=== PATIENT | female | born 1940 | race Caucasian/White ===

== ENCOUNTER 2023-07-18 02:29 | Inpatient (IN) | payer OTHER, SELFPAY ==
[2023-07-17 21:22] VITALS: BP 225/109
[2023-07-17 21:34] LABS: % Basophils 0.2 % (0-2); % Eosinophils 0.1 % (0-6); % Immature Granulocytes 0.7 % (0-0.5); % Lymphocytes 14.2 % (20.5-51.1); % Monocytes 7.1 % (1.7-9.3); % Neutrophils 77.7 % (42.2-75.2); Absolute Immature Granulocytes 0.1 10^3/uL (0-0.05); Absolute Lymphocytes 1.2 10^3/uL (1.2-3.4); Absolute Monocytes 0.6 10^3/uL (0.1-0.6); Absolute Neutrophils 6.5 10^3/uL (1.4-6.5); Hemoglobin 15.6 g/dL (12.0-16.0); Mean Corp Hgb Conc. 33.2 g/dL (33.0-37.0); Mean Corpuscular Hgb 30.5 pg (27.0-31.0); Mean Corpuscular Volume 91.8 fL (81.0-99.0); Mean Platelet Volume 10.3 fL (7.4-10.4); Nucleated Red Blood Cells % 0 %; Platelet Count 172 10^3/uL (130-400); Red Blood Cell Count 5.12 10^6/uL (4.20-5.40); Red Cell Dist. Width 14.4 % (11.5-14.5); White Blood Cell Count 8.3 10^3/uL (4.8-10.8)
[2023-07-17 21:43] VITALS: BP 214/96
[2023-07-17 21:48] LABS: ALT (SGPT) 27 U/L (0-35); AST (SGOT) 35 U/L (14-36); Albumin 4.3 g/dl (3.5-5.0); Alkaline Phosphatase 96 U/L (38-126); Blood Urea Nitrogen 29 mg/dl (7-17); Calcium 10.3 mg/dl (8.4-10.2); Carbon Dioxide 35 mmol/L (22-30); Chloride 97 mmol/L (98-107); Glucose 106 mg/dl (70-99); Potassium 4.3 mmol/L (3.5-5.1); Sodium 136 mmol/L (135-145); Total Bilirubin 0.4 mg/dl (0.2-1.3); Total Protein 6.2 g/dl (6.3-8.2); eGFR 40.55
[2023-07-17 21:49] LABS: COVID-19 Antigen Negative (Negative)
[2023-07-17 22:00] VITALS: BP 161/124
[2023-07-17 22:30] VITALS: BP 192/74
--- NOTE | 2023-07-17 22:52 | ED.GENMED ---
History of Present Illness
General
Chief Complaint: Cough
Source: patient
Exam Limitations: none
Time Seen by Provider: 07/17/23 22:50
Travel History
Have you had any contact with someone who has COVID-19?: No
Do you have any symptoms of coronavirus? Fever > 100 degrees, chills, cough, shortness of breath, sore throat, loss of taste or smell, muscle aches, or headache?: No
History of Present Illness
History of Present Illness:
83-year-old female presents with about 10 days worth of cough fatigue shortness of breath. She also started with a fever recently as well. No known sick contacts. She lives by herself but currently accompanied by her son. She has a history of
bronchitis. Never been diagnosed with COPD or heart failure. Denies any vomiting. No other complaints at this time
Past History
Past History
ED Past Medical History: CAD, Hypothyroidism, Other (?autoimmune thyroid disorder (dxd by her chiropractor), celiac, benign brain tumor, chronic lightheadedness/off balance ) and Other (benign brain tumor, CVA, hypoglycemia, gluten allergy, her
quarters and )
ED Past Surgical History: Other (Cataract )
Social History
Tobacco: Non-smoker
Alcohol: None
Drug: None
Personal: Single
Living: alone
Employment: Not employed
Family History
Family History: Other (Stroke and cancer )
Phy Exam
Physical Exam
Physical Exam:
General: Well-appearing female coughing throughout the exam
HEENT: Normocephalic atraumatic neck is supple
Heart: Tachycardic but regular
Lungs: Coarse bilaterally extremities: No cyanosis or edema
Skin: Warm no rashes
Course
Orders/Labs/Results
Orders:
Orders
07/17/23 21:29
COVID-19 Antigen Urgent
Source: Nasal Swab
Complete Blood Count/With Diff Urgent
Comprehensive Metabolic Panel Urgent
Influenza A+B Rapid Molecular Urgent
DANIEL Source: Nasal Swab
Specimen Description:
07/17/23 22:51
CR Chest - 2 Views Urgent
Comment:
Reason For Exam: cough, fever
07/17/23 23:02
Acetaminophen [Tylenol] 650 mg PO NOW STA
Ipratropium/Albuterol Sulfate [Duoneb] 3 ml INH R NOW STA
07/17/23 23:15
Lactic Acid Q4H
Comment: CANCEL 2nd LACTIC ACID IF 1st LACTIC ACID IS LESS THAN 2
Blood Culture Q30M
DANIEL Source: Blood/Venous
Specimen Description:
07/17/23 23:45
Blood Culture Q30M
DANIEL Source: Blood/Venous
Specimen Description:
07/17/23 23:49
Azithromycin 500 mg IVPB NOW Azithromycin 500 mg/250 ml [Zithromax Infusion] 500 mg in 250 ml IV NOW
CefTRIAXone [Rocephin] 1,000 mg IV NOW STA
07/18/23 03:15
Lactic Acid Q4H
Comment: CANCEL 2nd LACTIC ACID IF 1st LACTIC ACID IS LESS THAN 2
Abnormal Lab Results
07/17/23
21:29
Abs Immat Gran (auto) 0.1 H 10^3/uL
(0-0.05)
Immature Gran % 0.7 H %
(0-0.5)
Neutrophils % 77.7 H %
(42.2-75.2)
Lymphocytes % 14.2 L %
(20.5-51.1)
Chloride 97 L mmol/L
(98-107)
Carbon Dioxide 35 H mmol/L
(22-30)
BUN 29 H mg/dl
(7-17)
Creatinine 1.3 H mg/dL
(0.6-1.0)
Glucose 106 H mg/dl
(70-99)
Calcium 10.3 H mg/dl
(8.4-10.2)
Total Protein 6.2 L g/dl
(6.3-8.2)
07/17/23 21:29
07/17/23 21:29
Vital Signs
Initial and Last Documented VS:
Initial Vital Signs
Temp Pulse Resp Pulse Ox
103.1 F H 100 30 95
07/17/23 21:18 07/17/23 21:18 07/17/23 21:18 07/17/23 21:18
Last Documented Vital Signs
Temp Pulse Resp BP Pulse Ox
103 F H 98 25 203/80 92
07/17/23 23:30 07/17/23 23:30 07/17/23 23:30 07/17/23 23:25 07/17/23 23:25
MDM/Problems Addressed
Differential Diagnosis Includes:
Fever with cough. Consider viral illness such as COVID or flu versus bronchitis or pneumonia.
Patient not hypoxic but is tachycardic at rest. Will check labs. COVID and flu test were negative. Chest x-ray pending. Tylenol ordered for the fever. Will try DuoNeb as well.
*Critical Care Note
Total Time (30-74mins, 75-104mins- exclusive of procedures): Not Applicable
Update Note
Update Note:
Chest x-ray clear. Still tachycardic. Fever cough or shortness of breath. Consider subclinical pneumonia versus viral mediated bronchitis. Given her age and persistent fever will keep in hospital. Rocephin and Zithromax ordered for coverage.
Blood cultures pending
ED Attending Note
-
Portions of this chart may have been created with voice recognition software.� Occasional wrong word or��sound alike� substitutions may have occurred due to the inherent limitations of voice recognition software.
Discharge Plan
Departure
Patient Disposition: Admit
Date of Disposition: 07/17/23
Time of Disposition: 23:54
Admit to: Telemetry
Presentation/result/management discussed w/ accepting MD/DO: Hospitalist
Discharge Problem:
Acute bronchitis, Fever
Prescriptions:
No Action
prednisone 10 mg Tablet
10 mg PO DAILY
ibuprofen [Advil] 200 mg Tablet
200 mg PO Q6H PRN (Reason: pain)
furosemide [Lasix] 20 mg Tablet
20 mg PO DAILY
valsartan 40 mg Tablet
40 mg PO DAILY
multivit,mins no.21-folic acid 1 mg Tablet,Delayed Release (Dr/Ec)
1 tab PO
vitamin A 10,000 unit Capsule
10,000 unit PO DAILY
ascorbic acid (vitamin C) [Vitamin C] 500 mg Tablet
500 mg PO DAILY
Vitamin D2 1,000 unit Capsule
1,000 unit PO DAILY
Referrals:
Chetan Negrete MD [Family Provider] -
Interventions
Interventions:
*Risk Screen - Suicide Last Done: 07/17/23 21:47
*General Assessment Last Done: 07/17/23 21:21
*Neglect/Abuse Screening Last Done: 07/17/23 21:47
ED- Fall Risk Assessment Last Done: 07/17/23 21:47
*ED COVID-19 Vaccine History Last Done: 07/17/23 21:21
ED- Pulmonary Assessment Last Done: 07/17/23 23:15
Discharge Date and Time
Print Language: MOLDOVAN
[2023-07-17 23:25] VITALS: BP 203/80
[2023-07-17] MEDS: TYLENOL 650 MG PO (23:27)
[2023-07-17] MEDS: DUONEB 3 ML INH (23:27)
[2023-07-18] VITALS (28 sets, daily range): BP systolic 109–168; BP diastolic 43–103; PULSE 84–87; O2SAT 88–92; BMI 23.8
[2023-07-18] MEDS: ROCEPHIN 1000 MG IV (00:28)
[2023-07-18] MEDS: ZITHROMAX INFUSION 250 IV (00:38)
[2023-07-18] MEDS: PHENERGAN WITH CODEINE SYRUP 5 ML PO ×2 (00:45→05:38)
[2023-07-18 00:47] LABS: Lactic Acid 1.1 mmol/L (0.7-2.0)
--- NOTE | 2023-07-18 01:30 | HPS.HSE ---
Family Physician
-
Family Physician: Chetan Negrete
Chief Complaint
-
Cough, fatigue
History of Present Illness
Patient is an 83y F with PMH significant for polymyalgia, microscopic colitis and hypertension who presents to ED complaining of cough and fatigue x 2-3 weeks. Patient reports cough productive of white / yellow mucus initially - since becoming
less productive. She denies any fevers / chills. She has some mild dyspnea - mostly with coughing or exertion. No known sick contacts. She has been taking DayQuil / NyQuil without adequate relief of her symptoms and presented to the ED this
evening for further evaluation.
Medical History
Past Medical History
Past Medical History: Reports Other
Additional Past Medical History:
Hypertension
Polymyalgia Rheumatica
Microscopic Colitis
Meningioma
Past Surgical History: Reports Other
Additional Past Surgical History:
Meningioma Resection
Tubal Ligation
Social History
Tobacco: Non-smoker
Alcohol: None
Drug: None
Family History
Family History: Not pertinent
Allergies / Home Medications
Allergies reflects when Allergies were last updated in [facility].
Home Medications with original date entered in [facility]
Allergy/Medication List:
Allergies
Allergy/AdvReac Type Severity Reaction Status Date / Time
gluten [Gluten] Allergy diarrhea Verified 07/17/23 21:19
levofloxacin [From Levaquin] Allergy Itching Verified 07/17/23 21:19
Home Medications
ascorbic acid (vitamin C) 500 mg tablet (Vitamin C) 500 mg PO DAILY 04/03/22
ergocalciferol (vitamin D2) 1,000 unit capsule 1,000 unit PO DAILY 04/03/22
furosemide 20 mg tablet (Lasix) 20 mg PO DAILY 04/03/22
ibuprofen 200 mg tablet (Advil) 200 mg PO Q6H PRN pain 04/03/22
multivit with minerals no.21-folic acid 1 mg tablet,delayed release 1 tab PO DAILY 04/03/22
prednisone 10 mg tablet 10 mg PO DAILY 04/03/22
valsartan 40 mg tablet 40 mg PO DAILY 04/03/22
PreserVision AREDS 2 tab PO DAILY 07/17/23
Review of Systems
-
History Source: Patient
A 12 point ROS was completed and negative except as noted: Yes
Constitutional: Reports Fatigue; Denies Fever or Chills
EENT: Denies Sore Throat or Runny Nose
Respiratory: Reports Cough and Trouble Breathing
Cardiac: Denies Chest Pain or Palpitations
Abdomen/GI: Denies Abdominal Pain, Nausea, Vomiting or Diarrhea
: Denies Dysuria, Frequency or Flank Pain
Musculoskeletal: Reports Other (LE Pain (Left)); Denies Joint Pain
Neurological: Denies Dizzy or Headache
Psych: Denies Depression or Anxiety
Physical Exam
Vital Signs
Vital Signs
Temp Pulse Resp BP Pulse Ox
103 F H 105 25 156/90 86
07/17/23 23:30 07/18/23 00:15 07/18/23 00:15 07/18/23 00:00 07/18/23 00:15
Physical Exam
General: Other (83y F in no acute distress. 'Loose' cough noted on exam.)
HEENT: Moist mucous membranes and PERRLA
Respiratory: Other (Coarse breath sounds throughout. Coughing with inspiration. No appreciable wheezes.)
Cardiac: S1/S2, Regular Rhythm and Murmur (II/ DOUGIE)
GI: Soft, Non Tender, Non Distended and Normal Bowel Sounds
Musculoskeletal: No Clubbing, No Cyanosis and Other (1+ edema b/l ankles. Small area of ecchymosis L lower leg. No wound / skin breakdown.)
Neuro: AO x 3
Laboratory Results
-
07/17/23 21:29
07/17/23 21:29
Laboratory Results
Lactic Acid 1.1 mmol/L (0.7-2.0) 07/17/23 23:40
Total Bilirubin 0.4 mg/dl (0.2-1.3) 07/17/23 21:29
AST 35 U/L (14-36) 07/17/23 21:29
ALT 27 U/L (0-35) 07/17/23 21:29
Alkaline Phosphatase 96 U/L (38-126) 07/17/23 21:29
Impression/Plan
-
A/P: Patient is an 83y F with PMH significant for hypertension, colitis and PMR who presents to ED complaining of cough and SOB.
Acute Bronchitis v Early Pneumonia
Acute Hypoxemic Respiratory Insufficiency secondary to the above
- Admit for further evaluation and treatment.
- Patient with fever to 103.1 in the ED and cough / coarse breath sounds despite essentially normal-appearing CXR.
- COVID / influenza negative in the ED.
- Continue abx for community acquired infection.
- Supportive care including mucolytics, nebs, O2, etc.
- Follow for clinical improvement, follow fever curve, etc.
- Repeat CXR and / or check CT scan if fevers / symptoms persist.
CHRISTOPHER
- SCr = 1.3 compared to known baseline of 0.9.
- Suspect volume contraction secondary to acute illness, decreased PO intake, etc.
- IVF support overnight.
- Follow for return to baseline renal function.
Benign Hypertension
- Stable. Continue valsartan with holding parameters.
- Patient takes Lasix 'PRN' for swelling. Will hold this for now.
Polymyalgia Rheumatica
Microscopic Colitis
- Stable. No complaints of muscle pain, diarrhea, etc.
- Continue current low dose prednisone daily without changes.
DVT Prophylaxis: Subcut Heparin
Code Status: DNR
[2023-07-18 03:07] LABS: Urine Albumin Negative (Neg - Trace); Urine Bilirubin Negative (Negative); Urine Character Slightly Cloudy (Clear); Urine Color Yellow; Urine Glucose Negative (Negative); Urine Ketone 1+ (Negative); Urine Leukocyte Trace (Negative); Urine Nitrite Negative (Negative); Urine Occult Blood 4+ (Negative); Urine Specific Gravity 1.015 (<1.030); Urine Urobilinogen Negative (Neg - 1+)
[2023-07-18 03:31] LABS: Urine Amorphous Seen; Urine Bacteria Many (Negative)
[2023-07-18 03:33] LABS: Urine Red Blood Cell 40-50 /HPF (0-2)
[2023-07-18] MEDS: NSS 1000 IV ×2 (04:48→18:31)
[2023-07-18 05:14] LABS: Hematocrit 42.5 % (37.0-47.0); Hemoglobin 13.9 g/dL (12.0-16.0); Mean Corp Hgb Conc. 32.7 g/dL (33.0-37.0); Mean Corpuscular Hgb 30.2 pg (27.0-31.0); Mean Corpuscular Volume 92.4 fL (81.0-99.0); Mean Platelet Volume 10.6 fL (7.4-10.4); Platelet Count 145 10^3/uL (130-400); Red Cell Dist. Width 14.5 % (11.5-14.5)
[2023-07-18 05:36] LABS: Blood Urea Nitrogen 24 mg/dl (7-17); Calcium 9.5 mg/dl (8.4-10.2); Carbon Dioxide 31 mmol/L (22-30); Chloride 96 mmol/L (98-107); Glucose 101 mg/dl (70-99); Potassium 3.7 mmol/L (3.5-5.1); Sodium 136 mmol/L (135-145); eGFR 55.55
[2023-07-18] MEDS: TYLENOL 650 MG PO (05:50)
--- NOTE | 2023-07-18 08:14 | W.PN.HOSP.TC ---
Today's Communication/Plan
-
Continue antibiotics. Follow-up cultures. Plan for CT scan of the chest today.
Assessment / Plan
Assessment / Plan
Physical Exam
General: Other (83y F in no acute distress. 'Loose' cough noted on exam.)
HEENT: Moist mucous membranes and PERRLA
Respiratory: Other (Coarse breath sounds throughout. Coughing with inspiration. No appreciable wheezes.)
Cardiac: S1/S2, Regular Rhythm and Murmur (II/ DOUGIE)
GI: Soft, Non Tender, Non Distended and Normal Bowel Sounds
Musculoskeletal: No Clubbing, No Cyanosis and Other (1+ edema b/l ankles. Small area of ecchymosis L lower leg. No wound / skin breakdown.)
Neuro: AO x 3
A/P:
Acute Bronchitis v Early Pneumonia
Acute Hypoxemic Respiratory Insufficiency secondary to the above
- Admit for further evaluation and treatment.
- Patient with fever to 103.1 in the ED and cough / coarse breath sounds despite essentially normal-appearing CXR.
- COVID / influenza negative in the ED.
- Continue abx for suspected community acquired pneumonia.
- Supportive care including mucolytics, nebs, O2, etc.
- Follow for clinical improvement, follow fever curve, etc.
- Obtain CT scan of the chest without contrast today for further evaluation of lung parenchyma
CHRISTOPHER
- SCr = 1.3 compared to known baseline of 0.9. Creatinine down to 1.0 today
- Suspect volume contraction secondary to acute illness, decreased PO intake, etc.
- IVF support overnight.
- Follow for return to baseline renal function.
Benign Hypertension
- Stable. Continue valsartan with holding parameters.
- Patient takes Lasix 'PRN' for swelling. Will hold this for now.
Polymyalgia Rheumatica
Microscopic Colitis
- Stable. No complaints of muscle pain, diarrhea, etc.
- Continue current low dose prednisone daily without changes.
DVT Prophylaxis: Subcut Heparin
Code Status: DNR
Anticipated Discharge: 24 - 48 hours
Subjective/Interval History
-
Date of Service: July 18, 2023
Patient continues to have fever. Tmax 101 Fahrenheit this morning down from 103 Fahrenheit last evening. She continues to have some cough.
Objective Data
-
Labs:
Laboratory Results
07/17/23 07/18/23
21:29 04:55
WBC 8.3 8.0
Hgb 15.6 13.9
Hct 47.0 42.5
Plt Count 172 145
Sodium 136 136
Potassium 4.3 3.7
Chloride 97 L 96 L
Carbon Dioxide 35 H 31 H
BUN 29 H 24 H
Creatinine 1.3 H 1.0
Glucose 106 H 101 H
Calcium 10.3 H 9.5
Total Bilirubin 0.4
AST 35
ALT 27
Alkaline Phosphatase 96
Vital Signs:
Vital Signs
Temp Pulse Resp BP Pulse Ox
101.0 F H 79 22 118/52 95
07/18/23 05:54 07/18/23 07:00 07/18/23 07:00 07/18/23 07:00 07/18/23 05:30
[2023-07-18] MEDS: DIOVAN 40 MG PO (08:24)
[2023-07-18] MEDS: HEPARIN 5000 UNITS SC ×2 (08:31→20:00)
[2023-07-18] MEDS: DELTASONE 10 MG PO (08:31)
[2023-07-18] MEDS: MUCINEX 600 MG PO ×2 (08:31→20:01)
[2023-07-18] MEDS: PROTONIX IV 40 MG IV (08:47)
[2023-07-18] MEDS: NSS (PRESERVATIVE FREE) 10 ML IV (08:47)
--- NOTE | 2023-07-18 09:14 | PHANOTE ---
07/18/2023, med rec tech, pt. does not know what meds. they are taking; attempted to call pt.'s son but he did not respond; used pharmacy fill data and [facility] records from 09/27/2022 to compile a list of pt.'s meds.
--- NOTE | 2023-07-18 09:48 | PTOTSP ---
Speech therapy swallowing evaluation completed. Oral/pharyngeal swallowing function within functional limits. No evidence of aspiration or laryngeal penetration with PO trials presented. Coughing noted throughout assessment but did not appear to be
related to swallowing. Recommend continue regular diet and thin liquids - pt with gluten allergy. Medications whole in puree texture. ST to follow to further assess with solids and ensure diet tolerance.
[2023-07-18] MEDS: STERILE WATER FOR INJECTION 10 ML IV (16:01)
[2023-07-18] MEDS: MAXIPIME 2000 MG IV (16:01)
[2023-07-18] MEDS: ZITHROMAX 500 MG PO (20:01)
[2023-07-19] VITALS (7 sets, daily range): BP systolic 141–208; BP diastolic 75–106; PULSE 79–88
[2023-07-19] MEDS: MAXIPIME 2000 MG IV ×2 (03:22→16:30)
[2023-07-19] MEDS: STERILE WATER FOR INJECTION 10 ML IV ×2 (03:22→16:29)
[2023-07-19] MEDS: NSS 1000 IV (04:46)
--- NOTE | 2023-07-19 07:15 | W.PN.HOSP.TC ---
Addendum entered and electronically signed by Edgar Mcrae MD 07/19/23 18:05:
Sepsis, POA
Addendum entered and electronically signed by Edgar Mcrae MD 07/19/23 13:15:
Updated son over the phone today.
Original Note:
Today's Communication/Plan
-
IV antibiotics.
Assessment / Plan
Assessment / Plan
Physical Exam
General: Other (83y F in no acute distress. 'Loose' cough noted on exam.)
HEENT: Moist mucous membranes and PERRLA
Respiratory: Other (Coarse breath sounds throughout. Coughing with inspiration. No appreciable wheezes.)
Cardiac: S1/S2, Regular Rhythm and Murmur (II/ DOUGIE)
GI: Soft, Non Tender, Non Distended and Normal Bowel Sounds
Musculoskeletal: No Clubbing, No Cyanosis and Other (1+ edema b/l ankles. Small area of ecchymosis L lower leg. No wound / skin breakdown.)
Neuro: AO x 3
A/P:
Multifocal pneumonia
Acute Hypoxemic Respiratory Insufficiency secondary to the above
- CT scan of the chest confirmed multifocal pneumonia and significant parenchymal disease
-Antibiotics yesterday changed to cefepime and azithromycin (extensive pneumonia and she is relatively immunocompromised on steroids as outpatient)--> she is doing better with current antibiotics.
-Legionella and strep negative and MRSA pending
-Blood cultures no growth
-Sputum culture pending
-Add Mucinex and Tessalon pearls
-Speech therapy for swallow eval and plan for VSE today
Urinary tract infection
-Continue current antibiotics and follow-up sensitivity
CHRISTOPHER
-Creatinine improved from 1.3 down to 0.6 with IV fluids
-Stop IV fluids today. Encourage oral intake.
-Continue to monitor renal function
Diarrhea
-Stool studies and C. difficile if persists
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
Benign Hypertension
- Stable. Continue valsartan with holding parameters.
- Patient takes Lasix 'PRN' for swelling. Will hold this for now.
Polymyalgia Rheumatica
Microscopic Colitis
- Stable. No complaints of muscle pain, diarrhea, etc.
- Continue current low dose prednisone daily without changes.
DVT Prophylaxis: Subcut Heparin
Code Status: DNR
Anticipated Discharge: > 48 hours
Subjective/Interval History
-
Date of Service: July 19, 2023
Patient does not feel well today overall. She does have some abdominal discomfort and loose stools. She still having significant amount of cough.
Objective Data
-
Labs:
Laboratory Results
07/19/23
06:00
WBC Pending
Hgb Pending
Hct Pending
Plt Count Pending
Sodium Pending
Potassium Pending
Chloride Pending
Carbon Dioxide Pending
BUN Pending
Creatinine Pending
Glucose Pending
Calcium Pending
Vital Signs:
Vital Signs
Temp Pulse Resp BP Pulse Ox
98.2 F 62 18 171/93 98
07/19/23 03:51 07/18/23 23:55 07/19/23 03:51 07/19/23 04:14 07/19/23 03:51
I&O
07/18/23 07/19/23 07/20/23
06:59 06:59 06:59
Intake Total 0 / 0
Balance 0 / 0
Review of Systems
-
All other systems: Reviewed and negative
[2023-07-19 07:58] LABS: % Basophils 0.2 % (0-2); % Eosinophils 0.3 % (0-6); % Immature Granulocytes 0.5 % (0-0.5); % Lymphocytes 27.7 % (20.5-51.1); % Monocytes 9.5 % (1.7-9.3); % Neutrophils 61.8 % (42.2-75.2); Absolute Lymphocytes 1.6 10^3/uL (1.2-3.4); Absolute Monocytes 0.6 10^3/uL (0.1-0.6); Absolute Neutrophils 3.6 10^3/uL (1.4-6.5); Hematocrit 41.9 % (37.0-47.0); Hemoglobin 13.4 g/dL (12.0-16.0); Mean Corpuscular Hgb 30.1 pg (27.0-31.0); Mean Corpuscular Volume 94.2 fL (81.0-99.0); Mean Platelet Volume 10.4 fL (7.4-10.4); Nucleated Red Blood Cells % 0 %; Platelet Count 139 10^3/uL (130-400); Red Blood Cell Count 4.45 10^6/uL (4.20-5.40); Red Cell Dist. Width 14.4 % (11.5-14.5); White Blood Cell Count 5.8 10^3/uL (4.8-10.8)
[2023-07-19] MEDS: DELTASONE 10 MG PO (08:33)
[2023-07-19] MEDS: DIOVAN 40 MG PO (08:33)
[2023-07-19] MEDS: HEPARIN 5000 UNITS SC ×2 (08:34→20:18)
[2023-07-19] MEDS: MUCINEX 600 MG PO ×2 (08:35→20:18)
[2023-07-19] MEDS: NSS (PRESERVATIVE FREE) 10 ML IV (08:35)
[2023-07-19] MEDS: PROTONIX IV 40 MG IV (08:36)
[2023-07-19 08:45] LABS: Blood Urea Nitrogen 14 mg/dl (7-17); Calcium 8.5 mg/dl (8.4-10.2); Carbon Dioxide 28 mmol/L (22-30); Chloride 107 mmol/L (98-107); Estimated Creatinine Clearance 58 ml/min; Glucose 87 mg/dl (70-99); Potassium 3.7 mmol/L (3.5-5.1); Sodium 137 mmol/L (135-145); eGFR > 60.00
[2023-07-19] MEDS: TYLENOL 650 MG PO ×2 (09:25→15:25)
--- NOTE | 2023-07-19 13:18 | PTOTSP ---
Video Swallow Study
Summary: Patient presents with mild oral/pharyngeal dysphagia. There were episodes of deep laryngeal penetration with thin liquids but no definitive aspiration.
Suspect patient�s globus sensation with solids is due to pharyngeal and esophageal causes. There was at most mild-moderate diffuse pharyngeal residue due to decreased tongue based retraction, pharyngeal stripping, PES distention and CP bar. There
was also esophageal retention which could be reduced with a liquid wash.
Discussed diet options with patient including thin liquids with strategies vs mildly thick liquids w/ aspiration risk hydration protocol. After education patient opted for the later.
Recommend:
1. Regular (pick soft/moist foods), Thin Liquids
2. Medications - whole in puree
3. Strategies: upright to 90 degrees, single sips/bites, slow rate, alternate solids and liquids to assist with pharyngoesophageal clearance, upright for 30 minutes after PO
4. Assist with meal tray set up
5. Oral care 3x daily
6. Aspiration Risk Hydration Protocol - unlimited water via cup, after oral care, in between meals, without medications, with supervision
7. Dysphagia therapy for education and instruction in compensations (chin tuck with thin liquids, intermittent cough/swallow).
[2023-07-19] MEDS: NSS IV (13:58)
[2023-07-19] MEDS: ZITHROMAX INFUSION 250 IV (13:59)
--- NOTE | 2023-07-19 15:37 | PN.CDI ---
CDI
- -
CDI:
Physician Documentation Request
Admit Date: 07/18/23 02:29
Dear Doctor Thor,
Patient admitted with pneumonia.
Selected Entries
07/17/23
21:18 07/17/23
23:30 07/18/23
05:54
Temp 103.1 F H 103 F H 101.0 F H
07/17/23
21:18 07/17/23
22:15 07/17/23
22:45
Pulse 100 107 106
07/17/23
21:18 07/17/23
21:45 07/17/23
22:00
Resp Rate 30 41 24
Please clarify which of the following most accurately describes the status of the patient's infection:
Sepsis, POA
- Systemic manifestations of infection, with 2 or more SIRS criteria which include:
- Fever >100.4 degrees F or hypothermia < 96.8 degrees F
- Leukocytosis - WBC > 12,000 or leukopenia - WBC < 4,000 or > 10% bands
- Tachycardia > 90 beats per minute
- Tachypnea - RR > 20 breaths per minute or PaCO2 , 32mmHg
Source: Merck Manual 2013
Localized Infection Only, Without Systemic Illness
- indicate the site/source, such as pneumonia etc.
Other
Use of terms such as suspected, likely, concern for, or probable (associated with a specific diagnosis that is being evaluated, monitored, or treated as if it exists) are acceptable and can be coded in the inpatient setting, when documented at the
time of discharge.
Thank you,
Alia Scott RN, BSN
CDI Specialist
Available via [facility] text
Please use your independent medical judgment in providing your response.
[2023-07-20] VITALS (8 sets, daily range): BP systolic 134–182; BP diastolic 65–89; PULSE 78–86
[2023-07-20] MEDS: PHENERGAN WITH CODEINE SYRUP 5 ML PO ×2 (00:48→21:59)
[2023-07-20] MEDS: TYLENOL 650 MG PO ×3 (00:48→21:59)
[2023-07-20] MEDS: STERILE WATER FOR INJECTION 10 ML IV ×2 (03:35→17:35)
[2023-07-20] MEDS: MAXIPIME 2000 MG IV ×2 (03:36→17:35)
[2023-07-20] MEDS: APRESOLINE 5 MG IV (04:48)
[2023-07-20 05:58] LABS: % Basophils 0.3 % (0-2); % Immature Granulocytes 0.7 % (0-0.5); % Lymphocytes 31.5 % (20.5-51.1); % Monocytes 7.8 % (1.7-9.3); % Neutrophils 58.7 % (42.2-75.2); Absolute Eosinophils 0.1 10^3/uL (0-0.7); Absolute Lymphocytes 1.9 10^3/uL (1.2-3.4); Absolute Monocytes 0.5 10^3/uL (0.1-0.6); Absolute Neutrophils 3.5 10^3/uL (1.4-6.5); Hematocrit 43.1 % (37.0-47.0); Mean Corp Hgb Conc. 32.5 g/dL (33.0-37.0); Mean Corpuscular Hgb 30.2 pg (27.0-31.0); Mean Corpuscular Volume 93.1 fL (81.0-99.0); Mean Platelet Volume 10.9 fL (7.4-10.4); Nucleated Red Blood Cells % 0 %; Platelet Count 138 10^3/uL (130-400); Red Blood Cell Count 4.63 10^6/uL (4.20-5.40); Red Cell Dist. Width 14.1 % (11.5-14.5); White Blood Cell Count 5.9 10^3/uL (4.8-10.8)
--- NOTE | 2023-07-20 06:04 | PTCARENOTE ---
Patient's blood pressure elevated tonight at 0330 it was 182/74. [employer] aware and ordered 5mg of IV hydralizine. This was given at 0445. Presently blood pressure is 146/70, pulse 65.
[2023-07-20 06:15] LABS: Blood Urea Nitrogen 14 mg/dl (7-17); Calcium 9.2 mg/dl (8.4-10.2); Carbon Dioxide 26 mmol/L (22-30); Chloride 107 mmol/L (98-107); Estimated Creatinine Clearance 58 ml/min; Glucose 99 mg/dl (70-99); Potassium 3.8 mmol/L (3.5-5.1); Sodium 137 mmol/L (135-145); eGFR > 60.00
[2023-07-20] MEDS: MUCINEX 600 MG PO ×2 (08:29→20:51)
[2023-07-20] MEDS: DELTASONE 10 MG PO (08:29)
[2023-07-20] MEDS: DIOVAN 40 MG PO (08:29)
[2023-07-20] MEDS: HEPARIN 5000 UNITS SC ×2 (08:30→20:50)
--- NOTE | 2023-07-20 09:54 | W.PN.HOSP.TC ---
Today's Communication/Plan
-
Continue present course of antibiotics
Increase activity and obtain documentation for physical therapy for capabilities as lives alone
Not on oxygen at home will need home oxygen screen if remains try to titrate down
Aspiration precautions as dictated and outlined by speech therapy
Assessment / Plan
Assessment / Plan
Physical Exam
General: Other (83y F in no acute distress. 'Loose' cough noted on exam.)
HEENT: Moist mucous membranes and PERRLA
Respiratory: Other (Coarse breath sounds throughout. Coughing with inspiration. No appreciable wheezes.)
Cardiac: S1/S2, Regular Rhythm and Murmur (II/ DOUGEI)
GI: Soft, Non Tender, Non Distended and Normal Bowel Sounds
Musculoskeletal: No Clubbing, No Cyanosis and Other (1+ edema b/l ankles. Small area of ecchymosis L lower leg. No wound / skin breakdown.)
Neuro: AO x 3
A/P:
Multifocal pneumonia
Acute Hypoxemic Respiratory Insufficiency secondary to the above
- CT scan of the chest confirmed multifocal pneumonia and significant parenchymal disease
-Antibiotics yesterday changed to cefepime and azithromycin (extensive pneumonia and she is relatively immunocompromised on steroids as outpatient)--> she is doing better with current antibiotics.
-Legionella and strep negative and MRSA pending
-Blood cultures no growth
-Sputum culture pending
-Add Mucinex and Tessalon pearls
-Speech therapy for swallow eval and plan for VSE yesterday noting okay for regular diet with thins but some risk of aspiration
Urinary tract infection
-Continue current antibiotics and follow-up sensitivity
CHRISTOPHER
-Creatinine improved from 1.3 down to 0.6 with IV fluids
-Stop IV fluids today. Encourage oral intake.
-Continue to monitor renal function
Diarrhea
-Stool studies and C. difficile if persists
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
Benign Hypertension
- Stable. Continue valsartan with holding parameters.
- Patient takes Lasix 'PRN' for swelling. Will hold this for now.
Polymyalgia Rheumatica
Microscopic Colitis
- Stable. No complaints of muscle pain, diarrhea, etc.
- Continue current low dose prednisone daily without changes.
DVT Prophylaxis: Subcut Heparin
Code Status: DNR
Anticipated Discharge: Within 24 hours
Subjective/Interval History
-
Date of Service: July 20, 2023
Will comfortable this morning was observed during her a.m. meal and still coughing during meal. Came as a surprise to her that she may be aspirating. We discussed aspects of aspiration and the care that has to be undertaken during meals. She
accepted that she is coughing more when she tries to eat.
Objective Data
-
Labs:
Laboratory Results
07/20/23
05:26
WBC 5.9
Hgb 14.0
Hct 43.1
Plt Count 138
Sodium 137
Potassium 3.8
Chloride 107
Carbon Dioxide 26
BUN 14
Creatinine 0.5 L
Glucose 99
Calcium 9.2
Vital Signs:
Vital Signs
Temp Pulse Resp BP Pulse Ox
97.7 F 69 16 158/70 95
07/20/23 07:01 07/20/23 09:01 07/20/23 09:01 07/20/23 08:29 07/20/23 09:01
I&O
07/19/23 07/20/23 07/21/23
06:59 06:59 06:59
Intake Total 0 / 0 580 / 580
Balance 0 / 0 580 / 580
Review of Systems
-
History Source: Patient
Respiratory: Reports Cough
Cardiac: Reports No Symptoms
Physical Exam
-
General: Well Nourished
HEENT: Normocephalic
Respiratory: Rhonchi
Cardiac: Regular Rhythm
Skin: Warm
Neuro: Awake, Alert and Oriented
Psych: Calm
Data Reviewed
-
Total Time Spent with Patient (in minutes): 56
CT Scan: Image personally visualized and interpreted and Report Reviewed by me
Labs: Labs Reviewed by me (White count remains stable/chemistry is okay)
[2023-07-20] MEDS: ZITHROMAX INFUSION 250 IV (15:25)
[2023-07-21 03:05] VITALS: BP 163/70; BP 173/70; BP 187/94; PULSE 72; PULSE 73
[2023-07-21] MEDS: MAXIPIME 2000 MG IV ×2 (04:37→16:59)
[2023-07-21] MEDS: STERILE WATER FOR INJECTION 10 ML IV ×2 (04:37→16:59)
[2023-07-21 07:30] VITALS: BP 154/69; BP 163/66; PULSE 64; PULSE 66
[2023-07-21] MEDS: DELTASONE 10 MG PO (08:35)
[2023-07-21] MEDS: DIOVAN 40 MG PO (08:35)
[2023-07-21] MEDS: MUCINEX 600 MG PO ×2 (08:35→20:07)
[2023-07-21] MEDS: HEPARIN 5000 UNITS SC ×2 (08:35→20:07)
--- NOTE | 2023-07-21 10:31 | W.PN.HOSP.TC ---
Today's Communication/Plan
-
Think she needs a further speech eval
Send stool for C. difficile
Continue cefepime for Pseudomonas UTI for now
Aspiration precautions
Assessment / Plan
Assessment / Plan
Physical Exam
General: Other (83y F in no acute distress. 'Loose' cough noted on exam.)
HEENT: Moist mucous membranes and PERRLA
Respiratory: Other (Coarse breath sounds throughout. Coughing with inspiration. No appreciable wheezes.)
Cardiac: S1/S2, Regular Rhythm and Murmur (II/ DOUGIE)
GI: Soft, Non Tender, Non Distended and Normal Bowel Sounds
Musculoskeletal: No Clubbing, No Cyanosis and Other (1+ edema b/l ankles. Small area of ecchymosis L lower leg. No wound / skin breakdown.)
Neuro: AO x 3
A/P:
Multifocal pneumonia
Acute Hypoxemic Respiratory Insufficiency secondary to the above
- CT scan of the chest confirmed multifocal pneumonia and significant parenchymal disease
-Antibiotics yesterday changed to cefepime and azithromycin (extensive pneumonia and she is relatively immunocompromised on steroids as outpatient)--> she is doing better with current antibiotics.
-Legionella and strep negative and MRSA pending
-Blood cultures no growth
-Sputum culture pending
-Add Mucinex and Tessalon pearls
-Speech therapy for swallow eval and had VSE noting some penetration with thins/placed on thickened liquids/but on my observation still having some issues has choked on her breakfast this morning
-Have speech therapy reevaluate Saturday
Urinary tract infection
-Continue current antibiotics and follow-up sensitivity
-Urine culture grew out Pseudomonas
-Will continue on cefepime
CHRISTOPHER
-Creatinine improved from 1.3 down to 0.6 with IV fluids
-Stop IV fluids today. Encourage oral intake.
-Continue to monitor renal function
Diarrhea
-Stool studies and C. difficile if persists
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
-Obtain stool specimens as having some persisting diarrhea
Benign Hypertension
- Stable. Continue valsartan with holding parameters.
- Patient takes Lasix 'PRN' for swelling. Will hold this for now.
Polymyalgia Rheumatica
Microscopic Colitis
- Stable. No complaints of muscle pain, diarrhea, etc.
- Continue current low dose prednisone daily without changes.
DVT Prophylaxis: Subcut Heparin
Code Status: DNR
Anticipated Discharge: Within 24 hours
Subjective/Interval History
-
Date of Service: July 21, 2023
Stated to me that she had volume for breakfast this morning a piece of gutierrez got stuck on the right side of her throat and she was choking on it and she does sound more congested now. She has been following a modified diet with thickened liquids.
Objective Data
-
Vital Signs:
Vital Signs
Temp Pulse Resp BP Pulse Ox
97.8 F 66 18 154/69 93
07/21/23 07:30 07/21/23 08:35 07/21/23 07:30 07/21/23 08:35 07/21/23 08:30
I&O
07/20/23 07/21/23 07/22/23
06:59 06:59 06:59
Intake Total 580 / 580 240 / 240
Balance 580 / 580 240 / 240
Review of Systems
-
History Source: Patient and Family
Constitutional: Denies Fever
Respiratory: Reports Cough
Cardiac: Reports No Symptoms
Abdomen/GI: Reports No Symptoms
Physical Exam
-
HEENT: Normocephalic
Respiratory: Rhonchi and Crackles
Cardiac: Regular Rhythm
GI: Soft and Nontender
Skin: Warm
Neuro: Awake, Alert, Oriented and AO x 3
Psych: Calm
Data Reviewed
-
Total Time Spent with Patient (in minutes): 45
CT Scan: Discussed with Physician
Labs: Labs Reviewed by me (No leukocytosis/chemistries from yesterday stable)
--- NOTE | 2023-07-21 10:47 | CM ---
Addendum 07/20/23 14:00
Alert awake oriented patient who lives alone in a 1 story home with 0 step to enter. She is independent in all activities of daily living.She has supportive son Venkatesh. Will need PT OT for dc planning.
SNF HX [facility] hx
Pharmacy [facility]
PCP Dr Negrete
PLAN :Will need PT OT for dc planning Watch for new oxygen needs
[2023-07-21] MEDS: ZITHROMAX INFUSION 250 IV (13:49)
[2023-07-21] MEDS: TYLENOL 650 MG PO (14:11)
[2023-07-21 15:38] VITALS: BP 152/74
[2023-07-21 19:34] VITALS: BP 166/66
[2023-07-21 23:36] VITALS: BP 136/71
[2023-07-22] VITALS (7 sets, daily range): BP systolic 131–189; BP diastolic 57–94; PULSE 61–70; O2SAT 95
[2023-07-22] MEDS: PHENERGAN WITH CODEINE SYRUP 5 ML PO ×3 (01:09→23:34)
[2023-07-22] MEDS: TYLENOL 650 MG PO ×4 (01:09→23:34)
[2023-07-22] MEDS: STERILE WATER FOR INJECTION 10 ML IV ×2 (04:57→16:10)
[2023-07-22] MEDS: MAXIPIME 2000 MG IV ×2 (04:57→16:10)
[2023-07-22] MEDS: DELTASONE 10 MG PO (08:10)
[2023-07-22] MEDS: HEPARIN 5000 UNITS SC ×2 (08:10→21:41)
[2023-07-22] MEDS: MUCINEX 600 MG PO ×2 (08:10→21:42)
[2023-07-22] MEDS: DIOVAN 40 MG PO (08:10)
[2023-07-22] MEDS: DESENEX/MITRAZOL/ZEASORB 1 APPLIC TOPICAL ×2 (08:10→21:42)
--- NOTE | 2023-07-22 08:45 | W.PN.HOSP.TC ---
Today's Communication/Plan
-
Continue IV antibiotics. Pur�ed diet today.
Assessment / Plan
Assessment / Plan
Physical Exam
General: Other (83y F in no acute distress. 'Loose' cough noted on exam.)
HEENT: Moist mucous membranes and PERRLA
Respiratory: Other (Coarse breath sounds throughout. Coughing with inspiration. No appreciable wheezes.)
Cardiac: S1/S2, Regular Rhythm and Murmur (II/ DOUGIE)
GI: Soft, Non Tender, Non Distended and Normal Bowel Sounds
Musculoskeletal: No Clubbing, No Cyanosis and Other (1+ edema b/l ankles. Small area of ecchymosis L lower leg. No wound / skin breakdown.)
Neuro: AO x 3
A/P:
Multifocal pneumonia
Acute Hypoxemic Respiratory Insufficiency secondary to the above
- CT scan of the chest confirmed multifocal pneumonia and significant parenchymal disease
-Antibiotics changed to cefepime and azithromycin (extensive pneumonia and she is relatively immunocompromised on steroids as outpatient)--> continue IV cefepime. Stop azithromycin today.
-Legionella and strep and MRSA negative
-Blood cultures no growth
-Added Mucinex and Tessalon pearls
-Speech therapy for swallow eval and had VSE --> today speech therapy recommends pur�ed diet with thickened liquid.
-Updated son over the phone today
Urinary tract infection
-Continue current antibiotics and reviewed sensitivity
-Urine culture grew out Pseudomonas
-Will continue on cefepime based on sensitivity
CHRISTOPHER
-Creatinine improved from 1.3 down to 0.5 with IV fluids
-Off IV fluids. Encourage oral intake.
-Continue to monitor renal function
Diarrhea
-C. difficile negative. Rest of stool culture pending
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
Benign Hypertension
- Stable. Continue valsartan with holding parameters.
- Patient takes Lasix 'PRN' for swelling. Will hold this for now.
Polymyalgia Rheumatica
Microscopic Colitis
- Stable. No complaints of muscle pain, diarrhea, etc.
- Continue current low dose prednisone daily without changes.
DVT Prophylaxis: Subcut Heparin
Code Status: DNR
Anticipated Discharge: 24 - 48 hours
Subjective/Interval History
-
Date of Service: July 22, 2023
Patient denies any chest pain or shortness of breath. Afebrile
Objective Data
-
Vital Signs:
Vital Signs
Temp Pulse Resp BP Pulse Ox
98.4 F 70 18 169/87 95
07/22/23 03:58 07/22/23 08:10 07/22/23 03:58 07/22/23 08:10 07/22/23 08:20
I&O
07/21/23 07/22/23 07/23/23
06:59 06:59 06:59
Intake Total 240 / 240 610 / 610
Balance 240 / 240 610 / 610
--- NOTE | 2023-07-22 09:44 | PTOTSP ---
Dysphagia Therapy
Dysphagia re-evaluation completed as patient 'choked' on breakfast per physician's documentation 07/21/2023 while on a Regular diet (picking soft/moist foods) and Mildly thick liquids. Patient reported she had an episode of solid stasis with minced
size pieces of food.
Of note, on video swallow study this admission patient had pharyngeal residue, esophageal retention, and a cricopharyngeal bar. Suspect these are contributing to sensation of stasis. Strategy to alternate solids and liquids was recommended which
helped reduce residue. However, patient has not been using strategies due to STM loss despite written cues. She will need full supervision and verbal cues to use swallowing strategies. If c/o solid stasis persists despite strategies, consider GI
consult.
After education about dysphagia diets, patient requested to downgrade to a pureed diet due to overall fatigue when trying to eat and to reduce sensation of stasis. Notified physician of patient request.
1. L4 Puree (per pt request), L2 Mildly Thick Liquids
2. Medications - crushed in puree
3. Strategies: upright to 90 degrees, single sips/bites, slow rate, alternate solids and liquids to assist with pharyngoesophageal clearance, upright for 30 minutes after PO
4. Full supervision, assistance (meal tray set up, verbal cues to use swallowing strategies)
5. Oral care 3x daily
6. Aspiration Risk Hydration Protocol - unlimited water via cup, after oral care, in between meals, without medications, with supervision
7. Dysphagia therapy for education and instruction in compensations.
8. Consider GI consult if c/o stasis persists
9. Consider RD consult given limited intake this date
[2023-07-22] MEDS: FLUSH (NSS) 1 FLUSH IV (14:06)
[2023-07-22] MEDS: ZITHROMAX INFUSION 250 IV (14:06)
[2023-07-22] MEDS: STERILE WATER FOR INJECTION IV (14:07)
--- NOTE | 2023-07-22 15:39 | CM ---
Patient seen, CM discussed PT recommendation of SNF. Patient is agreeable and requesting referrals sent to [facility] and local SNFs. Patient will require auth for SNF once bed is found. CM will continue to follow for discharge
planning needs.
Plan; SNF pending accepting facility.
[2023-07-23] VITALS (9 sets, daily range): BP systolic 136–200; BP diastolic 65–105; PULSE 74–93; O2SAT 94
[2023-07-23] MEDS: MAXIPIME 2000 MG IV ×2 (04:14→16:47)
[2023-07-23] MEDS: STERILE WATER FOR INJECTION 10 ML IV ×2 (04:14→16:47)
[2023-07-23 06:51] LABS: % Basophils 0.8 % (0-2); % Eosinophils 1.6 % (0-6); % Immature Granulocytes 3.4 % (0-0.5); % Lymphocytes 30.2 % (20.5-51.1); Absolute Basophils 0.1 10^3/uL (0-0.2); Absolute Eosinophils 0.1 10^3/uL (0-0.7); Absolute Immature Granulocytes 0.2 10^3/uL (0-0.05); Absolute Lymphocytes 1.9 10^3/uL (1.2-3.4); Absolute Monocytes 0.6 10^3/uL (0.1-0.6); Absolute Neutrophils 3.5 10^3/uL (1.4-6.5); Hematocrit 40.7 % (37.0-47.0); Hemoglobin 13.1 g/dL (12.0-16.0); Mean Corp Hgb Conc. 32.2 g/dL (33.0-37.0); Mean Corpuscular Volume 93.3 fL (81.0-99.0); Mean Platelet Volume 10.7 fL (7.4-10.4); Nucleated Red Blood Cells % 0 %; Platelet Count 171 10^3/uL (130-400); Red Blood Cell Count 4.36 10^6/uL (4.20-5.40); White Blood Cell Count 6.4 10^3/uL (4.8-10.8)
[2023-07-23 07:16] LABS: Blood Urea Nitrogen 18 mg/dl (7-17); Calcium 9.4 mg/dl (8.4-10.2); Carbon Dioxide 26 mmol/L (22-30); Chloride 109 mmol/L (98-107); Estimated Creatinine Clearance 49 ml/min; Glucose 91 mg/dl (70-99); Potassium 3.8 mmol/L (3.5-5.1); Sodium 138 mmol/L (135-145); eGFR > 60.00
[2023-07-23] MEDS: MUCINEX 600 MG PO ×2 (08:02→20:11)
[2023-07-23] MEDS: DIOVAN 40 MG PO (08:02)
[2023-07-23] MEDS: DELTASONE 10 MG PO (08:03)
[2023-07-23] MEDS: HEPARIN 5000 UNITS SC ×2 (08:03→20:10)
[2023-07-23] MEDS: DESENEX/MITRAZOL/ZEASORB 1 APPLIC TOPICAL ×2 (08:06→20:09)
--- NOTE | 2023-07-23 08:51 | W.PN.HOSP.TC ---
Today's Communication/Plan
-
Continue IV antibiotics. PT OT reeval
Assessment / Plan
Assessment / Plan
Physical Exam
General: Other (83y F in no acute distress. 'Loose' cough noted on exam.)
HEENT: Moist mucous membranes and PERRLA
Respiratory: Other (Coarse breath sounds throughout. Coughing with inspiration. No appreciable wheezes.)
Cardiac: S1/S2, Regular Rhythm and Murmur (II/ DOUGIE)
GI: Soft, Non Tender, Non Distended and Normal Bowel Sounds
Musculoskeletal: No Clubbing, No Cyanosis and Other (1+ edema b/l ankles. Small area of ecchymosis L lower leg. No wound / skin breakdown.)
Neuro: AO x 3
A/P:
Multifocal pneumonia
Acute Hypoxemic Respiratory Insufficiency secondary to the above
- CT scan of the chest confirmed multifocal pneumonia and significant parenchymal disease
-Antibiotics changed to cefepime and azithromycin (extensive pneumonia and she is relatively immunocompromised on steroids as outpatient)--> continue IV cefepime. Stop azithromycin today.
-Legionella and strep and MRSA negative
-Blood cultures no growth
-Added Mucinex and Tessalon pearls
-Speech therapy for swallow eval and had VSE --> speech therapy recommends pur�ed diet with thickened liquid.
-Updated son over the phone yesterday
-PT recommends home PT versus skilled rehab
Urinary tract infection
-Continue current antibiotics and reviewed sensitivity
-Urine culture grew out Pseudomonas
-Will continue on cefepime based on sensitivity at least until tomorrow
CHRISTOPHER
-Creatinine improved from 1.3 down to 0.5 with IV fluids
-Off IV fluids. Encourage oral intake.
-Continue to monitor renal function
Diarrhea
-C. difficile negative. Rest of stool culture pending
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
Benign Hypertension
- Stable. Continue valsartan with holding parameters.
- Patient takes Lasix 'PRN' for swelling. Will hold this for now.
Polymyalgia Rheumatica
Microscopic Colitis
- Stable. No complaints of muscle pain, diarrhea, etc.
- Continue current low dose prednisone daily without changes.
DVT Prophylaxis: Subcut Heparin
Code Status: DNR
Anticipated Discharge: 24 - 48 hours
Subjective/Interval History
-
Date of Service: July 23, 2023
Patient alert and feels better overall. Afebrile
Objective Data
-
Labs:
Laboratory Results
07/23/23
06:08
WBC 6.4
Hgb 13.1
Hct 40.7
Plt Count 171 D
Sodium 138
Potassium 3.8
Chloride 109 H
Carbon Dioxide 26
BUN 18 H
Creatinine 0.7
Glucose 91
Calcium 9.4
Vital Signs:
Vital Signs
Temp Pulse Resp BP Pulse Ox
98.2 F 67 18 177/79 95
07/23/23 08:23 07/23/23 08:23 07/23/23 08:23 07/23/23 08:23 07/23/23 08:23
I&O
07/22/23 07/23/23 07/24/23
06:59 06:59 06:59
Intake Total 610 / 610 610 / 610
Balance 610 / 610 610 / 610
Review of Systems
-
All other systems: Reviewed and negative
--- NOTE | 2023-07-23 15:22 | CM ---
Addendum entered by An Heard 07/23/23 15:28:
[facility] denied referral; no bed available
Original Note:
PT recommendation is SNF vs. Home PT; OT recommended SNF
I asked PT to reassess her tomorrow; Son will be here in the afternoon around 2 PM tomorrow; has reservations taking her home with home PT and asking for assurances that she will be able to get around herself. She lives alone.
CM will follow up tomorrow
[2023-07-23] MEDS: FLUSH (NSS) 1 FLUSH IV (16:47)
--- NOTE | 2023-07-23 19:54 | PTCARENOTE ---
Patient had a 13 beat run of vtach during her PM orthostatic VS, moving from sitting to standing. At the time, pt. was asymptomatic and returned to bed. Provider notified. Manual BP taken and found to be 168/80, HR 95. At that time pt. stated that
she 'felt kind of like she did when she was at home and told her son to bring her to the hospital.' Pt. denies chest pain/dizziness but states that she is just feeling very tired, not like herself, and she thinks it could be because she 'did a lot
of walking around during the day.' Provider notified.
[2023-07-23] MEDS: TYLENOL 650 MG PO (20:10)
[2023-07-23 20:30] LABS: Glucose - Point of Care 154 mg/dl (70-99)
[2023-07-23 21:07] LABS: Hematocrit 40.9 % (37.0-47.0); Hemoglobin 13.8 g/dL (12.0-16.0); Mean Corp Hgb Conc. 33.7 g/dL (33.0-37.0); Mean Corpuscular Hgb 30.1 pg (27.0-31.0); Mean Corpuscular Volume 89.3 fL (81.0-99.0); Mean Platelet Volume 10.4 fL (7.4-10.4); Platelet Count 209 10^3/uL (130-400); Red Blood Cell Count 4.58 10^6/uL (4.20-5.40); Red Cell Dist. Width 14.1 % (11.5-14.5); White Blood Cell Count 8.7 10^3/uL (4.8-10.8)
[2023-07-23 21:29] LABS: Blood Urea Nitrogen 20 mg/dl (7-17); Calcium 9.7 mg/dl (8.4-10.2); Carbon Dioxide 26 mmol/L (22-30); Chloride 108 mmol/L (98-107); Estimated Creatinine Clearance 58 ml/min; Glucose 126 mg/dl (70-99); Magnesium 2.2 mg/dl (1.6-2.3); Potassium 3.8 mmol/L (3.5-5.1); Sodium 137 mmol/L (135-145); eGFR > 60.00
[2023-07-24] VITALS (7 sets, daily range): BP systolic 145–188; BP diastolic 58–96; PULSE 63–69
--- NOTE | 2023-07-24 00:19 | W.PN.UPDATE ---
Update Note
Progress Note Update
RN notified MANUFACTURING CONTROLS ENGINEER, patient had 13 beats of v-tach, stable VS, Orthostatic change noted. Patient denies any chest pain, shortness of breath, or palpitation. States she feels the same same as she came in with, and does not feel herself. Labs ordered and
wnl. No new orders at present.
[2023-07-24] MEDS: PHENERGAN WITH CODEINE SYRUP 5 ML PO (03:29)
[2023-07-24] MEDS: TYLENOL 650 MG PO ×3 (03:29→16:29)
[2023-07-24] MEDS: STERILE WATER FOR INJECTION 10 ML IV ×2 (03:30→16:50)
[2023-07-24] MEDS: MAXIPIME 2000 MG IV ×2 (03:30→16:50)
[2023-07-24] MEDS: DIOVAN 40 MG PO (09:09)
[2023-07-24] MEDS: DELTASONE 10 MG PO (09:10)
[2023-07-24] MEDS: MUCINEX 600 MG PO (09:10)
[2023-07-24] MEDS: DESENEX/MITRAZOL/ZEASORB 1 APPLIC TOPICAL (09:10)
[2023-07-24] MEDS: HEPARIN 5000 UNITS SC (09:10)
--- NOTE | 2023-07-24 09:19 | PTOTSP ---
Dysphagia Therapy
Patient reporting dislike of thickened liquids and not ordering items from kitchen as a result. Discussed upgrading liquids with swallowing strategies after patient education.
Recommend:
1. L4 Puree, L0 Thin Liquids (no straws) - SINGLE SIP, TUCK CHIN
2. Medications - crushed in puree
3. Strategies: upright to 90 degrees, single sips/bites, slow rate, TUCK CHIN WITH LIQUIDS, alternate solids and liquids and/or double swallows to assist with pharyngoesophageal clearance, upright for 30 minutes after PO
4. Full supervision/assistance (meal tray set up, verbal cues to use swallowing strategies)
5. Oral care 3x daily
6. Dysphagia therapy for education and instruction in compensations.
8. Consider GI consult given c/o solid stasis, prior to solid advancement
9. Consider RD consult given c/o lack of appetite, episodes of poor intake on modified diet
--- NOTE | 2023-07-24 09:39 | W.PN.HOSP.TC ---
Today's Communication/Plan
-
Continue current management. Discharge planning in progress
Assessment / Plan
Assessment / Plan
Physical Exam
General: Other (83y F in no acute distress. 'Loose' cough noted on exam.)
HEENT: Moist mucous membranes and PERRLA
Respiratory: Other (Coarse breath sounds throughout. Coughing with inspiration. No appreciable wheezes.)
Cardiac: S1/S2, Regular Rhythm and Murmur (II/ DOUGIE)
GI: Soft, Non Tender, Non Distended and Normal Bowel Sounds
Musculoskeletal: No Clubbing, No Cyanosis and Other (1+ edema b/l ankles. Small area of ecchymosis L lower leg. No wound / skin breakdown.)
Neuro: AO x 3
A/P:
Multifocal pneumonia
Acute Hypoxemic Respiratory Insufficiency secondary to the above
- CT scan of the chest confirmed multifocal pneumonia and significant parenchymal disease
-Antibiotics changed to cefepime and azithromycin (extensive pneumonia and she is relatively immunocompromised on steroids as outpatient)--> continue IV cefepime. Stop azithromycin today.
-Legionella and strep and MRSA negative
-Blood cultures no growth
-Added Mucinex and Tessalon pearls
-Speech therapy for swallow eval and had VSE --> speech therapy recommends pur�ed diet and now thin liquid.
-Updated son over the phone yesterday
-PT recommends home PT versus skilled rehab
-Will discuss with family today about discharge disposition
Urinary tract infection
-Continue current antibiotics and reviewed sensitivity
-Urine culture grew out Pseudomonas
-Will continue on cefepime based on sensitivity at least until today and then can stop
CHRISTOPHER
-Creatinine improved from 1.3 down to 0.5 with IV fluids
-Off IV fluids. Encourage oral intake.
-Continue to monitor renal function
Diarrhea
-C. difficile negative. Rest of stool culture pending
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
Benign Hypertension
- Stable. Continue valsartan with holding parameters.
- Patient takes Lasix 'PRN' for swelling. Will hold this for now.
Polymyalgia Rheumatica
Microscopic Colitis
- Stable. No complaints of muscle pain, diarrhea, etc.
- Continue current low dose prednisone daily without changes.
DVT Prophylaxis: Subcut Heparin
Code Status: DNR
Anticipated Discharge: Today
Subjective/Interval History
-
Date of Service: July 24, 2023
Patient denies chest pain or shortness of breath. Generalized weakness present.
Objective Data
-
Vital Signs:
Vital Signs
Temp Pulse Resp BP Pulse Ox
97.7 F 66 18 173/80 95
07/24/23 08:18 07/24/23 09:09 07/24/23 08:18 07/24/23 09:09 07/24/23 08:18
I&O
07/23/23 07/24/23 07/25/23
06:59 06:59 06:59
Intake Total 610 / 610 990 / 990
Balance 610 / 610 990 / 990
[2023-07-24 11:25] LABS: Blood Urea Nitrogen 19 mg/dl (7-17); Calcium 9.7 mg/dl (8.4-10.2); Carbon Dioxide 26 mmol/L (22-30); Chloride 109 mmol/L (98-107); Estimated Creatinine Clearance 58 ml/min; Glucose 101 mg/dl (70-99); Magnesium 2.1 mg/dl (1.6-2.3); Potassium 3.9 mmol/L (3.5-5.1); Sodium 137 mmol/L (135-145); eGFR > 60.00
--- NOTE | 2023-07-24 14:23 | CM ---
Addendum entered by An Heard 07/24/23 16:33:
IMM benefit explained; son signed form @ 1630
Addendum entered by An Heard 07/24/23 15:08:
PT/OT recommendation is home with home health services for PT
Met with patient and son; home health offered; agreeable with plan
[facility] [employer] [facility]
Plan: Discharge to Home today with Home Health Services for PT; son will provide transport home
Original Note:
[facility] accepted [facility] referral
[facility] just called; and will review referral and let us know tomorrow if they have can accept
--- NOTE | 2023-07-24 16:01 | VNURNOTE ---
Home Health Liaison met with patient and son Venkatesh at 1530 to discuss [facility] nurse/therapy, visits, schedule and homebound status. Patient is agreeable and understands that visits at home will be 2-3 x per week to assess and teach medical management.
[facility] brochure provided with contact information. Patient is aware that [facility] will contact her for start of care in 1-2 days after discharge from .
[facility] referral completed in [facility].
--- NOTE | 2023-07-24 16:03 | W.DCSUMMARY ---
Discharge Summary
Discharge Data
Date of Admission: 07/18/23
Date of Discharge: 07/24/23
-
Pending Results: No
Hospital Course
Patient 83 years old female with history of hypertension, pulmonology rheumatica, microscopic colitis, meningioma, presented to the hospital with generalized fatigue and cough and fever. She was placed on antibiotics for community-acquired
pneumonia, but patient continues to have fevers. Further workup including CT scan of the chest and urine cultures were consistent with multifocal pneumonia and Pseudomonas UTI. She was treated with IV cefepime and she responded well. She has
remained afebrile. Speech therapy evaluated her for swallowing. She has been placed on restricted diet and she has been doing well on that. Discussed with patient and family to continue on this current diet until reevaluated by speech therapy or
see GI as outpatient or PCP to reevaluate. She also was in acute kidney injury very desponded to IV fluids and renal function back to her normal. Patient participated with PT and OT. There were some recommendations of home versus SNF but after
further discussion with nurse case manager patient did not meet criteria for SNF today on 07/23. I had lengthy discussion with patient and family and as an alternative they are willing to go home with home health. Her blood pressure was also elevated but
in the setting of anxiety and physical therapy evaluation so we will reevaluated and if blood pressure trending down plan to discharge her home today.
Discharge duration: 36 minutes
Discharge Plan
-
Patient Disposition: Home with Home Care
Discharge Diagnosis/Procedures: Pseudomonas urinary tract infection. Multifocal aspiration pneumonia. Acute kidney injury. Dysphagia. Hypertension. History of polymyalgia rheumatica. History of microscopic colitis.
Diet: Other diet
Additional Diets: Pur�ed diet with thin liquids. Follow-up speech therapy recommendations for swallowing.
Activity: As tolerated
Driving Restrictions: As prior to admission
Blood Work: Please PCP to order CBC, BMP within 1 week.
Referrals:
Chetan Negrete MD [Family Provider] - in less than 1 week
Prescriptions:
Continued
valsartan 40 mg Tablet
40 mg PO DAILY
ascorbic acid (vitamin C) [Vitamin C] 500 mg Tablet
500 mg PO DAILY
furosemide 40 mg Tablet
40 mg PO DAILYPRN PRN (Reason: swelling in legs)
gabapentin 100 mg Capsule
200 mg PO DAILY
gabapentin 100 mg Capsule
100 mg PO DAILY PRN (Reason: nerve pain)
cholecalciferol (vitamin D3) 25 mcg (1,000 unit) Tablet
25 mcg PO DAILY
therapeutic multivitamin Tablet
1 tab PO DAILY
Discontinued
ibuprofen [Advil] 200 mg Tablet
400 mg PO Q6H PRN (Reason: mild pain)
Discharge Orders:
Discharge Patient (As Directed); Ordered 07/24/23
Ordered By: Edgar Mcrae
Discharge Date and Time
Discharge Date/Time: 07/24/23 17:33
Print Language: SLOVAK
== END 2023-07-24 17:33 | disposition home health service (06) | DRG 871 ==
LOC: 4 EAST ACU 02:29
PROVIDERS: Nurse Practitioner Gerontology; Physician Assistant; ADMITTING PHYSICIAN Hospitalist; ATTENDING PHYSICIAN Hospitalist; EMERGENCY PHYSICIAN Emergency Medicine; FAMILY PHYSICIAN Family Medicine
DX: A41.9 Sepsis, unspecified organism (principal); J69.0 Pneumonitis due to inhalation of food and vomit; N39.0 Urinary tract infection, site not specified; N17.9 Acute kidney failure, unspecified; Z11.52 Encounter for screening for COVID-19; J20.9 Acute bronchitis, unspecified; I10 Essential (primary) hypertension; M35.3 Polymyalgia rheumatica; K52.839 Microscopic colitis, unspecified; Z66 Do not resuscitate; R09.02 Hypoxemia; R06.89 Other abnormalities of breathing; B96.5 Pseudomonas (aeruginosa) (mallei) (pseudomallei) as the cause of diseases classified elsewhere
CPT/HCPCS: 71046; 71250; 74230; 80048; 80053; 81003; 81015; 82962; 83605; 83735; 85025; 85027; 87040; 87045; 87046; 87070; 87077; 87086; 87186; 87324; 87427; 87449; 87502; 87811; 87899; 92526; 92610; 92611; 94640; 94667; 94668; 96365; 96375; 97116; 97530; 97535; 99285